=== PATIENT | female | born 1995 | race African-American/Black ===

== ENCOUNTER 2018-02-15 15:41 | Emergency (ER) | payer SELFPAY ==
[~2018-02-15] VITALS: Ht 170.2 cm; Wt 92.0 kg
[2018-02-15 15:43] VITALS: BP 116/60
[2018-02-15] MEDS ORDERED: LIDOCAINE 2%, 20ML SQ ONE (16:30)
== END 2018-02-15 17:09 | disposition home or self-care (01) ==
LOC: ED 16:32
DX: L02.411 Cutaneous abscess of right axilla (principal)
CPT/HCPCS: 10060; 99283